=== PATIENT | female | born 2000 | race Caucasian/White ===

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

== ENCOUNTER 2018-01-12 15:09 | Emergency (ER) | payer BC, OTHER ==
[2018-01-12 15:13] VITALS: BP 123/74; TEMP 98.3; BMI 41.0
== END 2018-01-12 15:45 | disposition left against medical advice (07) ==
LOC: ED 15:09
DX: R05 Cough (principal); J02.9 Acute pharyngitis, unspecified; R50.9 Fever, unspecified
CPT/HCPCS: 99281

== ENCOUNTER 2018-01-17 17:39 | Emergency (ER) ==
[2018-01-17 17:47] VITALS: BP 120/79; BMI 40.3
[2018-01-17] MEDS ORDERED: MOTRIN PO STA (18:39)
--- NOTE | 2018-01-17 18:40 | ED.PDOC ---
General ED Provider: Dr. EVERETT SOTO Chief Complaint: Dizziness Stated Complaint: Onset of symptoms for past 3 days. feeling warm and temperature taken and was elevated to > 102 degrees. Has had sore throat and dry non productive cough. Has not taken otc meds or antipyretics. Time Seen by Physician: 18:40 Mode of Arrival: Walk-In Information Source: Patient Exam Limitations: No limitations Primary Care Provider: CHUCK MORALES Nursing and Triage Documentation Reviewed and Agree: Yes Reviewed sepsis parameters & appropriate labs ordered?: Yes System Inflammatory Response Syndrome: Temp 101F or Greater, Pulse >90 BPM Sepsis Protocol: For patient's 13 years and over: Temp is 96.8 and below OR 101 and greater Pulse >90 BPM Resp >20/minute Acutely Altered Mental Status Are patient's symptoms suggestive of a new infection, such as: -Pneumonia -Skin, Soft Tissue -Endocarditis -UTI -Bone, Joint Infection -Implantable Device -Acute Abdominal Infection -Wound Infection -Meningitis -Blood Stream Catheter Infection -Unknown EENT Complaint Exam - Throat Complaint/Exam Onset/Duration: 3 days Symptoms Are: Still present Timimg: Constant Initial Severity: Moderate Current Severity: Mild Aggravating: Reports: None Alleviating: Reports: None Associated Signs and Symptoms: Reports: Fever, Cough, Nasal congestion ( dizziness) Related History: Denies: Similar Episode Uvula Midline: Yes Lizet-tonsillar Fluctuence: No Scarlatinaform Rash Present: No Lesions: Absent: Lip, Gums, Tongue, Buccal Mucosa, Pharynx Exanthem: Absent: Lip, Gums, Tongue, Buccal Mucosa, Pharynx Stridor Present: No Sinus Tenderness Present: No Tonsillar Hypertrophy Present: Yes Tonsillar Exudate Present: No (but erythrematous) Lizet-tonsillar Swelling Present: Yes Adenopathy Present: Yes Splenomegaly Present: No Differential Diagnoses: Influenza, Mononucleosis, Pharyngitis, Tonsillitis Review of Systems - Review Of Systems Constitutional: Reports: Fever Eyes: Reports: No symptoms Ears, Nose, Mouth, Throat: Reports: No symptoms, Throat pain Respiratory: Reports: No symptoms, Cough Cardiac: Reports: No symptoms GI: Reports: No symptoms : Reports: No symptoms Musculoskeletal: Reports: No symptoms Skin: Reports: No symptoms Neurological: Reports: No symptoms Endocrine: Reports: No symptoms Hematologic/Lymphatic: Reports: No symptoms All Other Systems: Reviewed and Negative Past Medical History - Past Medical History Previously Healthy: Yes Endocrine: Reports: None Cardiovascular: Reports: None Respiratory: Reports: None Hematological: Reports: Anemia Gastrointestinal: Reports: None Genitourinary: Reports: None Neuro/Psych: Reports: None Musculoskeletal: Reports: None Cancer: Reports: None Last Menstrual Period: beginning of January - Surgical History General Surgical History: Reports: , Cholecystectomy, Tonsillectomy, Adenoidectomy - Family History Family History: Reports: None - Social History Smoking Status: Never smoker Hx Substance Use: No Alcohol Screening: None Physical Exam - Physical Exam Appearance: Ill-appearing, No pain distress, Well-nourished, Obese Ill-appearing: Moderate Pain Distress: Mild Eyes: GEORGE, EOMI, Conjunctiva clear ENT: Ears normal, Nose normal, Erythema Neck: Supple (No nuchal rigiditiy No posterior lymph nodes) Respiratory: Airway patent, Breath sounds clear, Breath sounds equal, Respirations nonlabored Cardiovascular: RRR, Pulses normal, No rub, No murmur GI/: Soft, No masses, Bowel sounds normal, No Organomegaly, Tender (Minimal without guarding) Musculoskeletal: Normal strength, ROM intact, No edema, No calf tenderness Skin: Warm, Dry, Normal color Neurological: Sensation intact, Motor intact, Reflexes intact, Cranial nerves intact, Alert, Oriented Psychiatric: Affect appropriate, Mood appropriate Critical Care Note - Critical Care Note Total Time (mins): 0 Course - Course Hematology/Chemistry: 01/17/18 18:50 01/17/18 18:50 Vital Signs: Temp Pulse Resp BP Pulse Ox 01/17/18 17:39 102.2 F H 106 H 20 120/79 97 Departure - Departure Time of Disposition: 20:20 Disposition: HOME SELF-CARE Discharge Problem: Acute pharyngitis, Febrile illness Instructions: Pharyngitis (ED) Condition: Good Pt referred to PMD for follow-up: Yes (1 week) IPMP verified?: No Additional Instructions: Take meds as directed Monitor temperature and take Ibuprofen 600 mg every 6 hrs for temp elevated above 101 degrees Return to ER if symptoms worsen or fail to improve after 24 hrs Allergies/Adverse Reactions: Allergies No Known Allergies Allergy (Verified 01/17/18 17:47) NO ALLERGY TO AMOXICILLIN BUT CANNOT TAKE BECAUSE IT DOES NOT WORK FOR HER Home Medications: Ambulatory Orders Ferrous Sulfate 325 mg PO DAILY 01/12/18 Azithromycin [Zithromax] 250 mg PO DAILY #6 tablet 01/17/18 Disposition Discussed With: Patient, Family
[2018-01-17 20:08] VITALS: TEMP 100.5
--- NOTE | 2018-01-18 07:38 | DI ---
EXAM: CHEST FRONTAL AND LATERAL VIEWS HISTORY: Fever and cough. COMPARISON: 10/04/2008 FINDINGS: Heart size and mediastinal contour remain within normal limits. No acute infiltrates. Normal vascularity with no pleural fluid or pneumothorax. The bony thorax has no acute finding. IMPRESSION: No acute process.
== END 2018-01-17 20:34 | disposition home or self-care (01) ==
LOC: ED 17:39
DX: J02.9 Acute pharyngitis, unspecified (principal); R50.9 Fever, unspecified
CPT/HCPCS: 36415; 80053; 81001; 84145; 85025; 86308; 87040; 87502; 87651; 99283

== ENCOUNTER 2018-05-17 18:38 | Emergency (ER) ==
[2018-05-17 18:42] VITALS: BP 122/77; TEMP 99.2; BMI 41.1
--- NOTE | 2018-05-17 18:51 | ED.PDOC ---
General ED Provider: Dr. EVERETT VALENCIA-ER Chief Complaint: Earache Stated Complaint: my ear hurts Time Seen by Physician: 18:49 Mode of Arrival: Walk-In Information Source: Patient Exam Limitations: No limitations Primary Care Provider: CHUCK MORALES Nursing and Triage Documentation Reviewed and Agree: Yes Does patient meet sepsis criteria?: No System Inflammatory Response Syndrome: Not Applicable Sepsis Protocol: For patient's 13 years and over: Temp is 96.8 and below OR 101 and greater Pulse >90 BPM Resp >20/minute Acutely Altered Mental Status Are patient's symptoms suggestive of a new infection, such as: -Pneumonia -Skin, Soft Tissue -Endocarditis -UTI -Bone, Joint Infection -Implantable Device -Acute Abdominal Infection -Wound Infection -Meningitis -Blood Stream Catheter Infection -Unknown EENT Complaint Exam - Ear Complaint/Exam Onset/Duration: 2 4hrs Symptoms Are: Still present Timing: Constant Initial Severity: Mild Current Severity: Mild Character: Reports: Dull pain, Aching pain Aggravating: Reports: None Alleviating: Reports: None Associated Signs and Symptoms: Reports: URI symptoms. Denies: Ear trauma, Ear swelling, Discharge, Fever, Hearing loss, Bleeding, Sore throat, Headache Ear Surgical History: None Vesicles to External Pinna: No Vesicles to Tragus: No Tympanic Membrane: Erythema, Dullness Differential Diagnoses: Otitis Media Review of Systems - Review Of Systems Constitutional: Reports: No symptoms Eyes: Reports: No symptoms Ears, Nose, Mouth, Throat: Reports: Ear pain Respiratory: Reports: No symptoms Cardiac: Reports: No symptoms GI: Reports: No symptoms : Reports: No symptoms Musculoskeletal: Reports: No symptoms Skin: Reports: No symptoms Neurological: Reports: No symptoms Endocrine: Reports: No symptoms Hematologic/Lymphatic: Reports: No symptoms All Other Systems: Reviewed and Negative Past Medical History - Past Medical History Previously Healthy: Yes Endocrine: Reports: None Cardiovascular: Reports: None Respiratory: Reports: None Hematological: Reports: Anemia Gastrointestinal: Reports: None Genitourinary: Reports: None Neuro/Psych: Reports: None Musculoskeletal: Reports: None Cancer: Reports: None Last Menstrual Period: may--first of month - Surgical History General Surgical History: Reports: , Cholecystectomy, Tonsillectomy, Adenoidectomy - Family History Family History: Reports: None - Social History Smoking Status: Never smoker Hx Substance Use: No Alcohol Screening: None Physical Exam - Physical Exam Appearance: Well-appearing, No pain distress, Well-nourished Pain Distress: Mild Eyes: GEORGE, EOMI, Conjunctiva clear ENT: Nose normal, Oropharynx normal Neck: Supple Respiratory: Airway patent Cardiovascular: RRR, Pulses normal, No rub, No murmur GI/: Soft, Nontender, No masses, Bowel sounds normal, No Organomegaly Musculoskeletal: Normal strength, ROM intact, No edema, No calf tenderness Skin: Warm, Dry, Normal color Neurological: Sensation intact, Motor intact, Reflexes intact, Cranial nerves intact, Alert, Oriented Psychiatric: Affect appropriate, Mood appropriate Critical Care Note - Critical Care Note Total Time (mins): 0 Course - Course Vital Signs: Temp Pulse Resp BP Pulse Ox 05/17/18 18:39 99.2 F 86 16 122/77 98 Departure - Departure Time of Disposition: 18:50 Disposition: HOME SELF-CARE Discharge Problem: Otitis media Qualifiers: Otitis media type: suppurative Chronicity: acute Laterality: left Recurrence: not specified as recurrent Spontaneous tympanic membrane rupture: without spontaneous rupture Qualified Code(s): H66.002 - Acute suppurative otitis media without spontaneous rupture of ear drum, left ear Instructions: Ear Infection (ED) Condition: Good Pt referred to PMD for follow-up: No IPMP verified?: No Additional Instructions: augmentin 875mg bid x 7 days---tylenol #3 q 6hrs prn pain #6--f/u with pcp Allergies/Adverse Reactions: Allergies No Known Allergies Allergy (Verified 05/17/18 18:43) NO ALLERGY TO AMOXICILLIN BUT CANNOT TAKE BECAUSE IT DOES NOT WORK FOR HER Home Medications: Ambulatory Orders Ferrous Sulfate 325 mg PO DAILY 01/12/18 Disposition Discussed With: Patient, Family
== END 2018-05-17 18:55 | disposition home or self-care (01) ==
LOC: ED 18:38
DX: H66.002 Acute suppurative otitis media without spontaneous rupture of ear drum, left ear (principal)
CPT/HCPCS: 99282

== ENCOUNTER 2018-10-13 13:29 | Emergency (ER) ==
[2018-10-13 13:35] VITALS: BP 116/75; TEMP 98.7; BMI 40.5
--- NOTE | 2018-10-13 14:30 | ED.PDOC ---
General ED Provider: Dr. MANI VERAS Chief Complaint: Sore Throat Stated Complaint: sore throat Time Seen by Physician: 13:40 (nurse present at all times ) Mode of Arrival: Walk-In Information Source: Patient Exam Limitations: No limitations Primary Care Provider: CHUCK MORALES Nursing and Triage Documentation Reviewed and Agree: Yes Does patient meet sepsis criteria?: No System Inflammatory Response Syndrome: Not Applicable Sepsis Protocol: For patient's 13 years and over: Temp is 96.8 and below OR 101 and greater Pulse >90 BPM Resp >20/minute Acutely Altered Mental Status Are patient's symptoms suggestive of a new infection, such as: -Pneumonia -Skin, Soft Tissue -Endocarditis -UTI -Bone, Joint Infection -Implantable Device -Acute Abdominal Infection -Wound Infection -Meningitis -Blood Stream Catheter Infection -Unknown EENT Complaint Exam - Throat Complaint/Exam Symptoms Are: Still present Timimg: Intermittent Initial Severity: Mild Current Severity: Mild Aggravating: Reports: Eating Associated Signs and Symptoms: Reports: Nasal congestion. Denies: Fever, Dysphagia, Drooling, Foreign body sensation, Chills, Cough, Wheezing, Hoarseness , Sinus discomfort, Difficulty breathing, Lethargy, Irritability, Decreased activity, Vomiting, Diarrhea, Decreased hearing, Ear drainage Uvula Midline: Yes Lizet-tonsillar Fluctuence: No Scarlatinaform Rash Present: No Lesions: Absent: Lip, Gums, Tongue, Buccal Mucosa, Pharynx Exanthem: Absent: Lip, Gums, Tongue, Buccal Mucosa, Pharynx Stridor Present: No Sinus Tenderness Present: No Tonsillar Hypertrophy Present: No Tonsillar Exudate Present: No Lizet-tonsillar Swelling Present: No Adenopathy Present: No Splenomegaly Present: No Differential Diagnoses: Pharyngitis Review of Systems - Review Of Systems Constitutional: Reports: No symptoms Eyes: Reports: No symptoms Ears, Nose, Mouth, Throat: Reports: Throat pain Respiratory: Reports: Cough Cardiac: Reports: No symptoms GI: Reports: No symptoms : Reports: No symptoms Musculoskeletal: Reports: No symptoms Skin: Reports: No symptoms Neurological: Reports: No symptoms Endocrine: Reports: No symptoms Hematologic/Lymphatic: Reports: No symptoms All Other Systems: Reviewed and Negative Past Medical History - Past Medical History Previously Healthy: Yes Endocrine: Reports: None Cardiovascular: Reports: None Respiratory: Reports: None Hematological: Reports: Anemia Gastrointestinal: Reports: None Genitourinary: Reports: None Neuro/Psych: Reports: None Musculoskeletal: Reports: None Cancer: Reports: None Last Menstrual Period: 09/26 - Surgical History General Surgical History: Reports: , Cholecystectomy, Tonsillectomy, Adenoidectomy - Family History Family History: Reports: None - Social History Smoking Status: Never smoker Hx Substance Use: No Alcohol Screening: None - Immunizations Tetanus Shot up to Date: Yes Physical Exam - Physical Exam Appearance: Well-appearing, No pain distress, Well-nourished Eyes: GEORGE, EOMI, Conjunctiva clear ENT: Erythema Respiratory: Airway patent, Breath sounds clear, Breath sounds equal, Respirations nonlabored Cardiovascular: RRR, Pulses normal, No rub, No murmur GI/: Soft, Nontender, No masses, Bowel sounds normal, No Organomegaly Musculoskeletal: Normal strength, ROM intact, No edema, No calf tenderness Skin: Warm, Dry, Normal color Neurological: Sensation intact, Motor intact, Reflexes intact, Cranial nerves intact, Alert, Oriented Psychiatric: Affect appropriate, Mood appropriate Critical Care Note - Critical Care Note Total Time (mins): 0 Course - Course Orders, Labs, Meds: Orders Category Date Time Status FLU A/B MOLECULAR Stat LAB 10/13/18 14:12 Uncollected MOLECULAR GROUP A STREP Stat LAB 10/13/18 14:13 Uncollected CHEST, 2 VIEWS PA & LAT Stat RADS 10/13/18 14:12 Stop Req Vital Signs: Temp Pulse Resp BP Pulse Ox 10/13/18 13:29 98.7 F 84 16 116/75 98 Departure - Departure Time of Disposition: 14:29 Disposition: HOME SELF-CARE Discharge Problem: Sore throat symptom Pharyngitis Qualifiers: Pharyngitis/tonsillitis etiology: unspecified etiology Qualified Code(s): J02.9 - Acute pharyngitis, unspecified Instructions: Pharyngitis (ED), Strep Throat (ED), Strep Throat in Children (ED ) Condition: Good Pt referred to PMD for follow-up: Yes IPMP verified?: No Additional Instructions: Please call your Family Physician as soon as possible to schedule a follow-up appointment. Allergies/Adverse Reactions: Allergies No Known Allergies Allergy (Verified 10/13/18 13:33) NO ALLERGY TO AMOXICILLIN BUT CANNOT TAKE BECAUSE IT DOES NOT WORK FOR HER Home Medications: Ambulatory Orders Ferrous Sulfate 325 mg PO DAILY 01/12/18
== END 2018-10-13 15:00 | disposition home or self-care (01) ==
LOC: ED 13:29
DX: J02.9 Acute pharyngitis, unspecified (principal)
CPT/HCPCS: 99282

== ENCOUNTER 2019-02-06 23:30 | Emergency (ER) ==
[2019-02-06 23:43] VITALS: BP 118/64; TEMP 99.3; BMI 24.9
[2019-02-06] MEDS ORDERED: LIDOCAINE 2%-EPI 1:100,000 20 ML MDV ONE (23:49)
--- NOTE | 2019-02-06 23:55 | ED.PDOC ---
General ED Provider: Dr. EVERETT COTA MD Chief Complaint: Foreign Body in Ear Stated Complaint: earing stuck in my ear Time Seen by Physician: 23:50 Mode of Arrival: Walk-In Information Source: Patient Exam Limitations: No limitations Primary Care Provider: CHUCK MORALES Nursing and Triage Documentation Reviewed and Agree: Yes Does patient meet sepsis criteria?: No If yes, has appropriate treatment been initiated?: Yes System Inflammatory Response Syndrome: Not Applicable Sepsis Protocol: For patient's 13 years and over: Temp is 96.8 and below OR 101 and greater Pulse >90 BPM Resp >20/minute Acutely Altered Mental Status Are patient's symptoms suggestive of a new infection, such as: -Pneumonia -Skin, Soft Tissue -Endocarditis -UTI -Bone, Joint Infection -Implantable Device -Acute Abdominal Infection -Wound Infection -Meningitis -Blood Stream Catheter Infection -Unknown Review of Systems - Review Of Systems Constitutional: Reports: No symptoms Eyes: Reports: No symptoms Ears, Nose, Mouth, Throat: Reports: Ear pain (left ear lobe) Respiratory: Reports: No symptoms Cardiac: Reports: No symptoms GI: Reports: No symptoms : Reports: No symptoms Musculoskeletal: Reports: No symptoms Skin: Reports: No symptoms Neurological: Reports: No symptoms Endocrine: Reports: No symptoms Hematologic/Lymphatic: Reports: No symptoms All Other Systems: Reviewed and Negative Past Medical History - Past Medical History Previously Healthy: Yes Endocrine: Reports: None Cardiovascular: Reports: None Respiratory: Reports: None Hematological: Reports: Anemia Gastrointestinal: Reports: None Genitourinary: Reports: None Neuro/Psych: Reports: None Musculoskeletal: Reports: None Cancer: Reports: None Last Menstrual Period: 01/02/19 - Surgical History General Surgical History: Reports: , Cholecystectomy, Tonsillectomy, Adenoidectomy - Family History Family History: Reports: None - Social History Smoking Status: Never smoker Hx Substance Use: No Alcohol Screening: None - Immunizations Tetanus Shot up to Date: Yes Physical Exam - Physical Exam Appearance: Well-appearing, No pain distress, Well-nourished Pain Distress: Mild Eyes: GEORGE, EOMI, Conjunctiva clear ENT: Ears normal (earring stuck under skin), Nose normal, Oropharynx normal Respiratory: Airway patent, Breath sounds clear, Breath sounds equal, Respirations nonlabored Cardiovascular: RRR, Pulses normal, No rub, No murmur GI/: Soft, Nontender, No masses, Bowel sounds normal, No Organomegaly Musculoskeletal: Normal strength, ROM intact, No edema, No calf tenderness Skin: Warm, Dry, Normal color Neurological: Sensation intact, Motor intact, Reflexes intact, Cranial nerves intact, Alert, Oriented Psychiatric: Affect appropriate, Mood appropriate Procedures - Foreign Body Removal Location of Foreign Object: left ear lobe Foreign Object: earring Depth of Object: 1/8 inch Type of Anesthesia: Local Medication Used: Yes: Lidocaine with Epi Prep: Saline, Betadine Irrigation: No Skin Incised: Yes Instruments Used: Yes: Forceps Foreign Body Identified and Removed: Yes (pt tolerated procedure well) Critical Care Note - Critical Care Note Total Time (mins): 0 Course - Course Vital Signs: Temp Pulse Resp BP Pulse Ox 02/06/19 23:32 99.3 F 97 H 20 118/64 98 Departure - Departure Time of Disposition: 00:13 Disposition: HOME SELF-CARE Discharge Problem: Foreign body in ear lobe Qualifiers: Encounter type: initial encounter Laterality: left Qualified Code(s): S00.452A - Superficial foreign body of left ear, initial encounter Instructions: Ear Foreign Body (ED) Condition: Good Pt referred to PMD for follow-up: Yes IPMP verified?: No Allergies/Adverse Reactions: Allergies No Known Allergies Allergy (Verified 02/06/19 23:44) NO ALLERGY TO AMOXICILLIN BUT CANNOT TAKE BECAUSE IT DOES NOT WORK FOR HER Home Medications: Ambulatory Orders Ferrous Sulfate 325 mg PO DAILY 01/12/18 Transfer Form Completed: No Disposition Discussed With: Patient
== END 2019-02-07 00:07 | disposition home or self-care (01) ==
LOC: ED 23:30
DX: T16.2XXA Foreign body in left ear, initial encounter (principal)
CPT/HCPCS: 96372; 99282

== ENCOUNTER 2019-05-14 14:54 | Emergency (ER) ==
[2019-05-14 14:57] VITALS: BP 128/74; TEMP 99.1; BMI 38.7
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
== END 2019-05-14 16:36 | disposition home or self-care (01) ==
LOC: ED 14:54
DX: M54.5 Low back pain (principal); Z3A.20 20 weeks gestation of pregnancy; V49.40XA Driver injured in collision with unspecified motor vehicles in traffic accident, initial encounter
CPT/HCPCS: 99283